=== PATIENT | male | born 1990 | race African-American/Black ===

== ENCOUNTER 2023-10-27 13:10 | Emergency (ER) | payer BC, OTHER ==
[2023-10-27 13:24] VITALS: BP 142/77; PULSE 93; RESP 18; TEMP 98.9; BMI 33.9
== END 2023-10-27 14:56 | disposition home or self-care (01) ==
LOC: JERFT 13:10
DX: R05.9 Cough, unspecified (principal); R09.81 Nasal congestion; M79.10 Myalgia, unspecified site; J02.9 Acute pharyngitis, unspecified; U07.1 COVID-19; J06.9 Acute upper respiratory infection, unspecified
CPT/HCPCS: 0241U-QW; 99283-25

== ENCOUNTER 2024-03-22 02:26 | Emergency (ER) | payer OTHER ==
[2024-03-22] MEDS: IBUPROFEN 600 MG TABLET (FP) PO ONE (02:30)
[2024-03-22 02:32] VITALS: BP 153/76; PULSE 111; RESP 20; TEMP 98; BMI 33.2
[2024-03-22] MEDS ORDERED: IBUPROFEN 600 MG TABLET (FP) PO ONE (03:51)
[2024-03-22] MEDS ORDERED: DIPHTH,PERTUSS(ACELL),TET 0.5 ML DISP.SYRIN IM ONE (03:51)
[2024-03-22] MEDS ORDERED: ACETAMINOPHEN 325 MG TABLET (FP) ONE (03:51)
[2024-03-22] MEDS: ACETAMINOPHEN 500 MG TABLET (FP) PO ONE (03:57)
[2024-03-22] MEDS: DIPHTH,PERTUSS(ACELL),TET 0.5 ML DISP.SYRIN IM ONE (03:58)
== END 2024-03-22 05:23 | disposition home or self-care (01) ==
LOC: JER 02:26
PROC: 0XQPXZZ Repair Left Index Finger, External Approach (ICD-10-PCS; principal; 2024-03-22)
PROC: 3E0234Z Introduction of Serum, Toxoid and Vaccine into Muscle, Percutaneous Approach (ICD-10-PCS; 2024-03-22)
DX: S61.211A Laceration without foreign body of left index finger without damage to nail, initial encounter (principal); W26.0XXA Contact with knife, initial encounter; Y04.8XXA Assault by other bodily force, initial encounter; Z23 Encounter for immunization
CPT/HCPCS: 73130-TC-LT-FY; 90715; 99284-25

== ENCOUNTER 2024-04-01 13:58 | Emergency (ER) | payer OTHER ==
[2024-04-01 14:02] VITALS: BP 122/80; PULSE 80; RESP 18; TEMP 98.2; BMI 33.2
== END 2024-04-01 14:30 | disposition home or self-care (01) ==
LOC: JERFT 13:58
DX: Z48.02 Encounter for removal of sutures (principal)
CPT/HCPCS: 99281-25